=== PATIENT | female | born 1970 | race Caucasian/White ===

== ENCOUNTER 2021-07-04 04:35 | Emergency (ER) | payer OTHER ==
[~2021-07-04] VITALS: Ht 177.8 cm; Wt 70.3 kg
[~2021-07-04 04:35] MED LIST: ACET325 PO; LEVE500 PO
== END 2021-07-04 04:47 | disposition home or self-care (01) ==
LOC: ER 04:35
DX: R56.9 Unspecified convulsions (principal); F17.210 Nicotine dependence, cigarettes, uncomplicated; Z53.21 Procedure and treatment not carried out due to patient leaving prior to being seen by health care provider
CPT/HCPCS: 99283

== ENCOUNTER 2021-07-12 13:44 | Inpatient (IN) | payer OTHER ==
[~2021-07-12] VITALS: Ht 170.2 cm; Wt 72.6 kg
[2021-07-12 14:04] LABS: BASOPHILS ABSOLUTE AUTO 0.03 K/mm3 (0.00-0.23); BASOPHILS PERCENT AUTO 1 % (0-2); EOSINOPHILS ABSOLUTE AUTO 0.13 K/mm3 (0.00-0.68); EOSINOPHILS PERCENT AUTO 2 % (0-6); Hematocrit 43.4 % (33.0-51.0); Hemoglobin 14.4 g/dL (11.5-16.0); IMMATURE GRAN ABSOLUTE AUTO 0.02 K/mm3 (0.00-0.10); IMMATURE GRAN PERCENT AUTO 0 % (0-1); LYMPHOCYTES ABSOLUTE AUTO 1.54 K/mm3 (0.84-5.20); LYMPHOCYTES PERCENT AUTO 24 % (21-46); MONOCYTES ABSOLUTE AUTO 0.49 K/mm3 (0.16-1.47); MONOCYTES PERCENT AUTO 8 % (4-13); Mean Corpuscular HGB 30.3 pg (26.0-34.0); Mean Corpuscular HGB Conc 33.2 g/dL (31.5-36.5); Mean Corpuscular Volume 91 fL (80-100); Mean Platelet Volume 9.4 fL (9.1-12.4); NEUTROPHILS ABSOLUTE AUTO 4.29 K/mm3 (1.96-9.15); NEUTROPHILS PERCENT AUTO 66 % (41-73); Platelet Count 262 K/mm3 (150-400); RDW Coefficient Variation 12.6 % (11.7-14.2); Red Blood Cell Count 4.75 M/mm3 (3.80-5.20)
[2021-07-12 14:22] LABS: Source, Urine Clean Catch
[2021-07-12 14:28] LABS: Alanine Aminotransfer (ALT/SGP 28 U/L (12-78); Albumin, Blood 3.6 g/dL (3.4-5.0); Alk Phos 76 U/L (50-136); Anion Gap 4 mmol/L (6-16); Aspartate Aminotrans (AST/SGOT 23 U/L (12-37); Bilirubin, Total 0.3 mg/dL (0.1-1.0); Blood Urea Nitrogen 15 mg/dL (8-24); Bun/Creatinine Ratio 24.5 (12.0-20.0); CO2, Blood 29 mmol/L (21-32); Calcium, Blood 9.1 mg/dL (8.5-10.1); Chloride, Blood 106 mmol/L (98-108); Creatinine, Blood 0.61 mg/dL (0.40-1.00); Globulin, Blood 3.6 g/dL (2.2-4.0); Glomerular Filtration Rate >60 (60-); Glucose, Blood 88 mg/dL (70-99); Potassium, Blood 4.1 mmol/L (3.5-5.5); Sodium, Blood 139 mmol/L (136-145); Total Protein, Blood 7.2 g/dL (6.4-8.2)
[2021-07-12 14:45] LABS: Appearance, Urine Clear (Clear); Bilirubin, Urine Neg (Neg); Blood, Urine Neg (Neg); Color, Urine Yellow (P-Yellow); Glucose Qualitative, Urine Neg (Neg); Ketones, Urine Neg (Neg); Leukocyte Esterase, Urine Neg (Neg); Nitrite, Urine Neg (Neg); Protein, Urine Neg (Neg); Urobilinogen, Urine NORM (Normal)
[2021-07-12 14:56] LABS: U Amphetamine Screen DETECTED; U Methamphetamine Screen DETECTED
[2021-07-12 14:57] LABS: U Barbituate Screen Not Detected; U Benzodiazapine Screen Not Detected; U Buprenorphine Screen Not Detected; U Cannabinoids Screen Not Detected; U Cocaine Screen Not Detected; U Methadone Screen Not Detected; U Opiates Screen Not Detected; U Oxycodone Screen Not Detected; U Phencyclidine Screen Not Detected; U Propoxyphene Screen Not Detected
--- NOTE | 2021-07-12 20:00 | NUR ---
ARRIVAL FROM ED AND RAPID RESPONSE: PT ARRIVED TO ROOM 335 FROM EMERGENCY DEPARTMENT. PT WAS TRANSFERED FROM [facility] TO HOSPITAL BED WITH SLIDER SHEET AND 3 STAFF. PT DIFFICULT TO AROUSE. PT OPENED EYES AND STATED THAT SHE WAS "SLEEPY". PT WAS ABLE TO TELL ME HER NAME AT THIS TIME BUT WAS UNABLE TO TELL ME HER BIRTHDAY, THE DATE, OR WHERE SHE WAS AT. AT THIS TIME WE ROLLED PT ON TO HER SIDE TO REMOVE EXTRA BEDDING. PT'S ENTIRE BODY TENSED UP AND PT HAD FOAMING SALIVA COMING FROM HER MOUTH. PT WAS TURNED ON TO HER SIDE. PT APPEARED TO BE ACTIVELY SEIZING. RAPID RESPONSE WAS CALLED. ATIVAN WAS PULLED FROM [employer]. DR. HAMILTON AT BEDSIDE. 2 MG IV ATIVAN GIVEN. PT APPEARED TO HAVE AT LEAST TWO SEIZURES DURING THIS TIME. PT PLACED ON 2 L BY RT. PT HAVING APNEIC PERIODS. PT TRANSFERED TO ICU 5 WITH INSTRUMENTATION INSTRUCTOR AND COST CONTROLLER. REPORT CALLED TO FINESSE PUBLIC OPINION SURVEY TAKER.
--- NOTE | 2021-07-12 20:52 | NUR ---
ASSUMPTION OF CARE PT ARRIVED TO ICU FROM MEDICAL FLOOR VIA GURNEY. TX TO ICU BED VIA SLIDER SHEET. SEIZURE PADS IN PLACE ON ICU BED. PT ALERT BUT SOMNOLENT UPON ARRIVAL. KNOWS NAME, , LOCATION BUT CONFUSED TO YEAR. FOLLOWING COMMANDS. ON 2LPM O2 VIA NC c SATS >95%. VSS. NSR ON FERTILIZING MACHINE OPERATOR. TEMP PROBE GIBSON PATENT, DRAINING TO GRAVITY. NORMOTHERMIC. PT QUICKLY TO SLEEP WITH DECREASED STIMULI. PT ON LEFT SIDE, CALL LIGHT IN REACH. WILL MONITOR CLOSELY.
[2021-07-13 03:48] LABS: Hematocrit 40.7 % (33.0-51.0); Hemoglobin 13.2 g/dL (11.5-16.0); Mean Corpuscular HGB 30.3 pg (26.0-34.0); Mean Corpuscular HGB Conc 32.4 g/dL (31.5-36.5); Mean Corpuscular Volume 93 fL (80-100); Mean Platelet Volume 9.4 fL (9.1-12.4); Platelet Count 213 K/mm3 (150-400); RDW Coefficient Variation 12.8 % (11.7-14.2); RDW Standard Deviation 43.9 fL (35.1-46.3); Red Blood Cell Count 4.36 M/mm3 (3.80-5.20); White Blood Cell Count 5.63 K/mm3 (4.00-11.30)
[2021-07-13 04:12] LABS: Anion Gap 3 mmol/L (6-16); Blood Urea Nitrogen 11 mg/dL (8-24); Bun/Creatinine Ratio 16.1 (12.0-20.0); CO2, Blood 29 mmol/L (21-32); Calcium, Blood 8.4 mg/dL (8.5-10.1); Chloride, Blood 109 mmol/L (98-108); Creatinine, Blood 0.68 mg/dL (0.40-1.00); Glomerular Filtration Rate >60 (60-); Glucose, Blood 89 mg/dL (70-99); Potassium, Blood 4.1 mmol/L (3.5-5.5); Sodium, Blood 141 mmol/L (136-145)
--- NOTE | 2021-07-13 06:12 | NUR ---
SHIFT SUMMARY PT SLEPT FOR MOST OF THE NIGHT. AROUND 0530 PT HAD WHAT APPEARED TO BE A SEIZURE. PT WAS SPEAKING WITH THIS NURSE THE SEIZURE BEGAN. THE WHOLE SEIZURE LASTED FOR ABOUT 1 MINUTE, DURING THAT TIME PT WAS FROTHING FROM THE MOUTH. THIS NURSE ASKED PT TO OPEN HER MOUTH SO I COULD SUCTION THE SPUTUM, PT WAS ABLE TO FULLY COMPLY WITH OPENING HER MOUTH AND ALLOWING ME TO SUCTION. PT ALSO ABLE TO SQUEEZE BOTH HANDS UPON REQUEST DURING THE SEIZURE. O2 SATS, PULSE, AND BP WNL DURING AND AFTER SEIZURE. PT MEDICATED c PRN ATIVAN, CURRENTLY PT RESTING COMFORTABLY. VSS. WILL CONTINUE TO MONITOR.
--- NOTE | 2021-07-13 12:17 | NUR ---
OXIDE FURNACE TENDER AT BEDSIDE FOR PT WITH ACTIVE SEIZURE X 1MIN. 4MG ATIVAN PULLED, 2MG GIVEN. PT APPEARED TO BE POST ICTAL. NYSTRAGMUS NOTED TO BOTH EYES WITH RIDGID LIMBS, 2MG ADDITIONAL ATIVAN GIVEN. RT AT BEDSIDE. PT WAS FOUND TO BE APENIC DURING 1MIN EPISODE, SATS NEVER FELL BELOW 90%. WILL CALL DR DAWSON TO UPDATE.
--- NOTE | 2021-07-13 17:08 | NUR ---
SUMMARY PT SLEPT MOST OF THE DAY. A LITTLE AFTER NOON PT HAD A SEIZURE THAT WAS WITNESSED BY ANIMAL NUTRITION CONSULTANT. 4MG OF ATIVAN WAS GIVEN. LABS WERE DRAWN AND PT GOT AN EXTRA DOSE OF KEPPRA. SINCE PT WILL AROUSE BUT JUST MUMBLES SOME WORDS AND GOES BACK TO SLEEP. NYSTAGMUS HAS STOPPED. PUPILS ARE EQUAL AND BRISK. PT MOVES SELF AROUND IN BED. CONTINUING TO MONITOR FOR SEIZURE ACTIVITY. DR. DAWSON ORDERED EEG THAT WILL BE DONE TOMORROW. AFTER EEG IS DONE SHE WILL DECIDE IF NEUROLOGY NEEDS TO BE CONSULTED. NO SIGN OF DISTRESS. VITALS STABLE.
--- NOTE | 2021-07-13 19:01 | NUR ---
PT WAKES UP AND ASKS FOR FOOD. INFORMED PT THAT SHE IS NPO DUE TO SEIZURE THIS AFTERNOON. ONCE RN LEAVES THE ROOM PT STARTS MOANING AND BECOMES RIGID IF SHE IS HAVING A SEIZURE. PT IS SPITTING SALIVA FROM MOUTH. WHEN RN ASKS PT TO OPEN EYE'S SHE DOES. OPENS MOUTH ON COMMAND. AFTER EPISODE PT STATES AGAIN THAT SHE IS HUNGRY AND WANTS FOOD. KEEPING PT NPO FOR NOW.
--- NOTE | 2021-07-13 21:29 | NUR ---
SHIFT ASSESSMENT PT ALERT AND ORIENTED. FOLLOWING COMMANDS. CONTINUES TO REQUEST FOOD, ADVISED PT DUE TO HER MULTIPLE SEIZURES TODAY SHE NEEDS TO REMAIN NPO. PT UNDERSTANDING BUT AGITATED. PT ALSO REQUESTING HER CBD SHE USES FOR SLEEP. ASKED THIS NURSE IF I HAVE ANYTHING TO MAKE HER SLEEP ALL NIGHT. PT QUICKLY TO SLEEP WITH DECREASED STIMULI. PT MOVING SELF IN BED. GIBSON CATH REMAINS PATENT. NO BM TODAY. WILL MONITOR CLOSELY.
--- NOTE | 2021-07-14 05:54 | NUR ---
SHIFT SUMMARY PT ALERT AND ORIENTED, SLEPT FOR MOST OF THE NIGHT. HAD ONE SEIZURE LIKE PRESENTATION, MEDICATED X 1 c 2MG ATIVAN. PT KEPT NPO OTHER THAN ICE CHIPS. PT REQUESTING FOOD THIS AM, ADVISED OF ASPIRATION RISK BY THIS NURSE. PT VERY AGITATED WITH NPO STATUS. VSS, NO OTHER ACUTE CHANGES DURING THE NIGHT.
--- NOTE | 2021-07-14 07:16 | NUR ---
AMA PT ANGRY REGARDING NOT RECEIVING FOOD THIS MORNING. PT REMAINS NPO DUE TO ASPIRATION RISK FROM SEIZURE LIKE ACTIVITY. PT BECAME VERY AGITATED AND YELLED "AMA" WHILE BEATING ON SIDE TABLE. GIBSON CATH AND IV'S DC'D. PT SCRIBBLED ON AMA FORM. PT PROVIDED BLANKET AND CLOTHING, AWAITING PT BELONGINGS FROM SECURITY AT THIS TIME.
--- NOTE | 2021-07-14 09:20 | NUR ---
0900.. patient had signed the AMA paperwork but then laid back on the bed to rest till her belonging arrived. When they did arrive with security she started going through them and then throwing them all over the floor and the bed. Dirt was spewed everywhere with the wet clothes. The room smelled like a pig sty. She refused to get dressed saying everything is wet or has vomit on it. She also was saying her ID cards were missing however she did have them in a bundle in her hand at 0800 when she was saying certain cards were missing. She was given a dry sweatshirt to put on. She proceeded to get dressed and she walked out with one backpack. All her other belongings were left in the room on the bed and floor where she left them. Security followed her out addresssig her to also grab her other belongings. She eventfully told the security office to throw them out. Room was stripped down and her belongings were bagged up and thrown in the garbage bin.
== END 2021-07-14 09:00 | disposition left against medical advice (07) | DRG 101 ==
LOC: ER 13:44 → ICUW 15:49 → MEDS 19:43 → ICUE 20:01
PROVIDERS: Emergency Medicine; ADMIT Internal Medicine
DX: G40.909 Epilepsy, unspecified, not intractable, without status epilepticus (principal); M54.2 Cervicalgia; M54.9 Dorsalgia, unspecified; G89.29 Other chronic pain; F17.210 Nicotine dependence, cigarettes, uncomplicated; F15.90 Other stimulant use, unspecified, uncomplicated; E86.0 Dehydration; G93.89 Other specified disorders of brain; F43.10 Post-traumatic stress disorder, unspecified; Z59.00 Homelessness unspecified; Z90.10 Acquired absence of unspecified breast and nipple; Z91.14 Patient's other noncompliance with medication regimen; Z92.3 Personal history of irradiation; Z92.21 Personal history of antineoplastic chemotherapy; Z87.820 Personal history of traumatic brain injury; Z85.3 Personal history of malignant neoplasm of breast; Z90.49 Acquired absence of other specified parts of digestive tract; Z90.89 Acquired absence of other organs; Z88.0 Allergy status to penicillin; Z88.8 Allergy status to other drugs, medicaments and biological substances
CPT/HCPCS: 36415; 51702; 70450; 80048; 80053; 81003; 82550; 84146; 85025; 85027; 93005; 93010; 96361; 96365; 99285-25; G0480; J1650; J1953; J2060; J7030

== ENCOUNTER 2021-07-14 10:24 | Inpatient (IN) | payer OTHER ==
[~2021-07-14] VITALS: Ht 167.6 cm; Wt 73.9 kg
[2021-07-14 10:47] LABS: BASOPHILS ABSOLUTE AUTO 0.03 K/mm3 (0.00-0.23); BASOPHILS PERCENT AUTO 1 % (0-2); EOSINOPHILS ABSOLUTE AUTO 0.09 K/mm3 (0.00-0.68); EOSINOPHILS PERCENT AUTO 2 % (0-6); Hematocrit 42.1 % (33.0-51.0); Hemoglobin 13.6 g/dL (11.5-16.0); IMMATURE GRAN ABSOLUTE AUTO 0.01 K/mm3 (0.00-0.10); IMMATURE GRAN PERCENT AUTO 0 % (0-1); LYMPHOCYTES ABSOLUTE AUTO 1.22 K/mm3 (0.84-5.20); LYMPHOCYTES PERCENT AUTO 21 % (21-46); MONOCYTES ABSOLUTE AUTO 0.48 K/mm3 (0.16-1.47); MONOCYTES PERCENT AUTO 8 % (4-13); Mean Corpuscular HGB Conc 32.3 g/dL (31.5-36.5); Mean Corpuscular Volume 93 fL (80-100); Mean Platelet Volume 9.2 fL (9.1-12.4); NEUTROPHILS ABSOLUTE AUTO 3.96 K/mm3 (1.96-9.15); NEUTROPHILS PERCENT AUTO 68 % (41-73); Platelet Count 226 K/mm3 (150-400); RDW Coefficient Variation 12.2 % (11.7-14.2); RDW Standard Deviation 42.4 fL (35.1-46.3); Red Blood Cell Count 4.54 M/mm3 (3.80-5.20); White Blood Cell Count 5.79 K/mm3 (4.00-11.30)
[2021-07-14 11:11] LABS: Anion Gap 5 mmol/L (6-16); Blood Urea Nitrogen 13 mg/dL (8-24); Bun/Creatinine Ratio 15.9 (12.0-20.0); CO2, Blood 29 mmol/L (21-32); Calcium, Blood 8.8 mg/dL (8.5-10.1); Chloride, Blood 105 mmol/L (98-108); Creatinine, Blood 0.82 mg/dL (0.40-1.00); Glomerular Filtration Rate >60 (60-); Glucose, Blood 104 mg/dL (70-99); Potassium, Blood 4.3 mmol/L (3.5-5.5); Prolactin 10.4 ng/mL; Sodium, Blood 139 mmol/L (136-145)
--- NOTE | 2021-07-14 17:13 | NUR ---
pt arrived to 336 via gurney from ED, report was obtain and could hear pt yelling in background, she is a/ox3, tearful but yells when she is upset, asked her to stop but didn't. lungs are clear t/o, on r/a, resp even and unlabored, no cough noted, hrr, tele in place running sr per monitor, see strip, no edema noted, ppp+2, cap refill <3sec, vs stable, afebrile, iv to lac site wont flush, will hang ns @100ml/hr as soon as iv access, btx4, abd flat soft nontender, voids without diff, skin c/w/d, emmett contreras, oriented to room layout and call system, call light in reach.
--- NOTE | 2021-07-14 18:16 | NUR ---
pt having a siezure, shaking the bed, and body is stiff, unresponsive, called for help and administered ativan, seizure slowed but still unresponsive just a moan, and body is stiff, giving another 2mg ativan per Dr. Joy, if she doesn't respond will send to icu per Dr. Joy. will stay with pt.
--- NOTE | 2021-07-14 18:36 | NUR ---
Pt resting quietly at this time. Dr. Joy in room, ordered a stat prolactin, lab here drawing. seizure last approx 4 to 5 mins. call light in reach.
[2021-07-15 01:23] LABS: U Amphetamine Screen DETECTED; U Barbituate Screen Not Detected; U Benzodiazapine Screen DETECTED; U Buprenorphine Screen Not Detected; U Cannabinoids Screen Not Detected; U Cocaine Screen Not Detected; U Methadone Screen Not Detected; U Methamphetamine Screen Not Detected; U Opiates Screen Not Detected; U Oxycodone Screen Not Detected; U Phencyclidine Screen Not Detected; U Propoxyphene Screen Not Detected
[2021-07-15 04:05] LABS: Hematocrit 37.5 % (33.0-51.0); Hemoglobin 12.4 g/dL (11.5-16.0); Mean Corpuscular HGB 30.3 pg (26.0-34.0); Mean Corpuscular HGB Conc 33.1 g/dL (31.5-36.5); Mean Corpuscular Volume 92 fL (80-100); Mean Platelet Volume 9.1 fL (9.1-12.4); Platelet Count 202 K/mm3 (150-400); RDW Coefficient Variation 12.1 % (11.7-14.2); RDW Standard Deviation 41.1 fL (35.1-46.3); Red Blood Cell Count 4.09 M/mm3 (3.80-5.20); White Blood Cell Count 4.02 K/mm3 (4.00-11.30)
[2021-07-15 04:21] LABS: Anion Gap 5 mmol/L (6-16); Blood Urea Nitrogen 15 mg/dL (8-24); Bun/Creatinine Ratio 20.6 (12.0-20.0); CO2, Blood 28 mmol/L (21-32); Calcium, Blood 8.7 mg/dL (8.5-10.1); Chloride, Blood 109 mmol/L (98-108); Creatinine, Blood 0.73 mg/dL (0.40-1.00); Glomerular Filtration Rate >60 (60-); Glucose, Blood 86 mg/dL (70-99); Sodium, Blood 142 mmol/L (136-145)
--- NOTE | 2021-07-15 04:36 | NUR ---
SHIFT SUMMARY: PATIENT FATIGUED THROUGH THE SHIFT. AWAKES SPONTANEOUSLY. 1PA TO BSC. ENDORSES DIZZINESS WHEN AMBULATING. IMPULSIVE AT TIMES, YELLS OUT FROM ROOM. TELE =NSR 60S. COMPLIANT WITH CARE AND ASSESSMENTS. NO SEIZURE ACTIVITY NOTED ON NOC. UA SENT TO LAB.
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
--- NOTE | 2021-07-15 15:07 | NUR ---
At approx 1345 this rn to room pt yelling out "no, no, no", hearing rhythmic thumping. Pt sitting up with food tray over her, pt having jerking motion hitting the tray table spilling food and and drink. Tray table removed, pt flattened and turned on side, pt stiff with jerking motion, turning red, not responding to staff, notified Dr Joy, order to continue to hold ativan unitl she is at bedside, pt continues to stiff and tense t/o body and kicking the foot board; Dr Joy at bedside, requesting saline flush, pt has 2 periods of relaxing and quickly restarts stiff and tense t/o; requested if we are able to administer ativan, Dr Joy nods and says yes, administered ativan, Dr Joy stops administration mid way, approx 1.25 mg adminsitered. New order from Dr Joy to d/c ativan, and check Lactic acid and prolactin stat. Pt appears to be resting, waking but quickly falling back to sleep. vss. Discussed seizures after meals with Dr Joy, new order for ova/parasite testing. Received medical records, notified and provided to Dr. Joy.
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
--- NOTE | 2021-07-15 16:40 | NUR ---
I agree with the nursing unit clerk documentation.
== END 2021-07-15 16:10 | disposition left against medical advice (07) | DRG 101 ==
LOC: ER 10:24 → MEDS 10:25 → EDBEDREQ 15:40 → EDBEDREQSVC 15:40 → MEDS 16:18
PROVIDERS: Student in an Organized Health Care Education/Training Program; ADMIT Internal Medicine
DX: G40.909 Epilepsy, unspecified, not intractable, without status epilepticus (principal); Z85.3 Personal history of malignant neoplasm of breast; F43.10 Post-traumatic stress disorder, unspecified; Z59.00 Homelessness unspecified; Z92.21 Personal history of antineoplastic chemotherapy; G89.29 Other chronic pain; Z90.49 Acquired absence of other specified parts of digestive tract; Z88.6 Allergy status to analgesic agent; Z88.0 Allergy status to penicillin; Z88.8 Allergy status to other drugs, medicaments and biological substances; F17.210 Nicotine dependence, cigarettes, uncomplicated; M54.2 Cervicalgia; Z98.890 Other specified postprocedural states; F15.90 Other stimulant use, unspecified, uncomplicated
CPT/HCPCS: 36415; 80048; 83605; 84146; 85025; 85027; 95819; 96365; 96366; 96372; 96372-59; 96376; 99285-25; G0378; J1650; J1953; J2060

== ENCOUNTER 2021-07-17 16:03 | Observation (INO) | payer OTHER ==
[~2021-07-17] VITALS: Ht 172.7 cm; Wt 72.6 kg
[2021-07-17 16:18] LABS: Source, Urine Straight Cath
[2021-07-17 16:19] LABS: BASOPHILS ABSOLUTE AUTO 0.02 K/mm3 (0.00-0.23); BASOPHILS PERCENT AUTO 1 % (0-2); EOSINOPHILS ABSOLUTE AUTO 0.12 K/mm3 (0.00-0.68); EOSINOPHILS PERCENT AUTO 3 % (0-6); Hematocrit 40.1 % (33.0-51.0); Hemoglobin 13.5 g/dL (11.5-16.0); IMMATURE GRAN ABSOLUTE AUTO 0.02 K/mm3 (0.00-0.10); IMMATURE GRAN PERCENT AUTO 1 % (0-1); LYMPHOCYTES ABSOLUTE AUTO 1.52 K/mm3 (0.84-5.20); LYMPHOCYTES PERCENT AUTO 36 % (21-46); MONOCYTES PERCENT AUTO 12 % (4-13); Mean Corpuscular HGB 30.3 pg (26.0-34.0); Mean Corpuscular HGB Conc 33.7 g/dL (31.5-36.5); Mean Corpuscular Volume 90 fL (80-100); Mean Platelet Volume 9.7 fL (9.1-12.4); NEUTROPHILS PERCENT AUTO 49 % (41-73); Platelet Count 250 K/mm3 (150-400); RDW Coefficient Variation 12.3 % (11.7-14.2); RDW Standard Deviation 40.8 fL (35.1-46.3); Red Blood Cell Count 4.45 M/mm3 (3.80-5.20); White Blood Cell Count 4.28 K/mm3 (4.00-11.30)
[2021-07-17 16:29] LABS: Appearance, Urine Hazy (Clear); Bilirubin, Urine Neg (Neg); Blood, Urine Neg (Neg); Color, Urine Yellow (P-Yellow); Glucose Qualitative, Urine Neg (Neg); Ketones, Urine Neg (Neg); Leukocyte Esterase, Urine Neg (Neg); Nitrite, Urine Neg (Neg); Protein, Urine Neg (Neg); Specific Gravity, Urine 1.025 (1.003-1.022); Urobilinogen, Urine NORM (Normal)
[2021-07-17 16:51] LABS: Alanine Aminotransfer (ALT/SGP 33 U/L (12-78); Albumin, Blood 3.6 g/dL (3.4-5.0); Alk Phos 78 U/L (50-136); Anion Gap 2 mmol/L (6-16); Aspartate Aminotrans (AST/SGOT 40 U/L (12-37); Bilirubin, Total 0.3 mg/dL (0.1-1.0); Blood Urea Nitrogen 19 mg/dL (8-24); Bun/Creatinine Ratio 25.9 (12.0-20.0); CO2, Blood 30 mmol/L (21-32); Calcium, Blood 9.3 mg/dL (8.5-10.1); Chloride, Blood 106 mmol/L (98-108); Creatinine, Blood 0.73 mg/dL (0.40-1.00); Ethanol (Alcohol), Blood, Med <3 mg/dL; Globulin, Blood 3.6 g/dL (2.2-4.0); Glomerular Filtration Rate 101 (60-); Glucose, Blood 85 mg/dL (70-99); Potassium, Blood 4.2 mmol/L (3.5-5.5); Sodium, Blood 138 mmol/L (136-145); Total Protein, Blood 7.2 g/dL (6.4-8.2)
[2021-07-17 16:52] LABS: Bacteria Mod /hpf; Mucus Mod (0-Heavy); Red Blood Cells, Urine 0-2 /hpf (0-2); Squamous Epithelial Cells Few /hpf (Few)
[2021-07-17 17:00] LABS: U Amphetamine Screen DETECTED; U Barbituate Screen Not Detected; U Benzodiazapine Screen DETECTED; U Buprenorphine Screen Not Detected; U Cannabinoids Screen Not Detected; U Cocaine Screen Not Detected; U Methadone Screen Not Detected; U Methamphetamine Screen DETECTED; U Opiates Screen Not Detected; U Oxycodone Screen Not Detected; U Phencyclidine Screen Not Detected; U Propoxyphene Screen Not Detected
== END 2021-07-18 02:43 | disposition home or self-care (01) ==
LOC: ER 16:03 → EOR 16:04
PROVIDERS: ADMIT Emergency Medicine
DX: G40.909 Epilepsy, unspecified, not intractable, without status epilepticus (principal); F15.10 Other stimulant abuse, uncomplicated; F17.210 Nicotine dependence, cigarettes, uncomplicated; Z88.0 Allergy status to penicillin; Z88.2 Allergy status to sulfonamides; Z88.8 Allergy status to other drugs, medicaments and biological substances; Z85.3 Personal history of malignant neoplasm of breast
CPT/HCPCS: 51701; 70450; 80053; 81001; 84703; 85025; 87086; 93005; 93010; 99285-25; G0378; G0480